=== PATIENT | female | born 1985 | race African-American/Black ===

== ENCOUNTER 2019-04-14 17:15 | Emergency (ER) | payer SELFPAY ==
[~2019-04-14] VITALS: Ht 154.9 cm; Wt 74.8 kg
[2019-04-14] MEDS ORDERED: KETOROLAC TROMETH 60MG/2ML VIAL IM ONE (19:00)
[2019-04-14 19:16] LABS: Albumin 4.2 g/dL (3.4-5.0); BUN/Creatinine Ratio 14.5; Potassium 3.8 mmol/L (3.5-5.1)
[2019-04-14 19:18] LABS: Bilirubin, Total 0.5 mg/dL (0.2-1.0)
[2019-04-14] MEDS ORDERED: SODIUM CHLORIDE 0.9% 1,000 ML IV ONE (20:30)
[2019-04-14 22:18] VITALS: BP 111/76
== END 2019-04-14 23:00 | disposition home or self-care (01) ==
LOC: ER 17:15
DX: S16.1XXA Strain of muscle, fascia and tendon at neck level, initial encounter (principal); S80.01XA Contusion of right knee, initial encounter; F12.10 Cannabis abuse, uncomplicated; E86.0 Dehydration; Z90.49 Acquired absence of other specified parts of digestive tract; X58.XXXA Exposure to other specified factors, initial encounter; Y93.89 Activity, other specified; Y99.8 Other external cause status; Y92.89 Other specified places as the place of occurrence of the external cause
CPT/HCPCS: 70450; 72125; 73562; 73610; 73630; 82962; 93005; 96360; 96372; 99284; J1885